=== PATIENT | female | born 1965 | race Caucasian/White ===

== ENCOUNTER 2016-09-05 12:17 | Inpatient (IN) | payer MEDICARE ==
[~2016-09-05] VITALS: Ht 167.6 cm; Wt 53.7 kg
--- NOTE | ~2016-09-05 | CON ---
PATIENT'S NAME: SHANON JOSUE [facility] AGE: 51 Y [address] ROOM: [place] [id number] LOCATION: GICU ADMIT DATE: 09/05/2016 Consultation DISCHARGE DATE: FAMILY PHYSICIAN: PHYSICIAN, UNKNOWN ATTENDING PHYSICIAN: JOSH SELLERS REFERRING PHYSICIAN: ANGELA FLORES MD This is a consult for Dr. Sellers, hospitalist. This 51-year-old lady is referred for rehab evaluation, admitted on 09/05/2016 through the emergency room with altered mental status. Was admitted, per history and physical, unresponsive and was brought in from [place] by air transport. She is now intubated and does follow on and off one-step instructions at best; otherwise, she falls back to sleep. She keeps her eyes closed. She withdraws from painful stimulation. Can move all 4. Deep tendon reflexes are present and equal throughout. Babinski is equivocal. She has an IV line and also a Winters catheter. Vitals: Blood pressure 122/90, temperature 102.8, pulse 90 to 120, and respirations 16-20. She has been started on vancomycin and parts fabricator following. She is at the present time also evaluated and investigated. Blood culture has been withdrawn and sent. Chest: Seemingly is clinically clear. Heart: Regular sinus and tachycardia. Abdomen: Soft. Bowel sounds positive. She is on the following medications: 1. NaCl 0.9%. 2. Maxipime. 3. Tylenol. 4. Dextrose 5%. 5. Precedex. 6. Versed. 7. Pepcid. 8. Lovenox. 9. Albuterol. 10. Lasix. 11. KCl. 12. Narcan. 13. Fentanyl. PATIENT'S NAME: SHANON JOSUE [facility] AGE: 51 Y [address] ROOM: [address] [address] LOCATION: GICU ADMIT DATE: 09/05/2016 Consultation DISCHARGE DATE: FAMILY PHYSICIAN: PHYSICIAN, UNKNOWN ATTENDING PHYSICIAN: JOSH SELLERS At this time, I will start her on bedside therapy, PT/OT, and Speech. Please see the orders. I will follow alongside with you, and if she is on down the line more able, I will re-evaluate for possible rehab admission. Thank you for this referral. I will follow alongside with you. MD NAKIA LEE/charlene /[id number] d: 09/06/16 1740 t: 09/07/16 0841, CONSULTATION REPORT
--- NOTE | ~2016-09-05 | HP ---
PATIENT'S NAME: SHANON JOSUE [facility] AGE: 51 Y [address] ROOM: [address] [place], [place] [address] LOCATION: CU ADMIT DATE: 09/05/2016 History & Physical DISCHARGE DATE: FAMILY PHYSICIAN: PHYSICIAN, UNKNOWN ATTENDING PHYSICIAN: JOSH SELLERS DATE OF SERVICE: CHIEF COMPLAINT: Altered mental status. HISTORY OF PRESENT ILLNESS: This is a 51-year-old female who currently is intubated, therefore I cannot obtain any information from the patient directly. I tried to call the patient's daughter; however, she did not answer. I left a voicemail for her to call back to the ICU. I already called the transferring facility who sent the patient over here in [place] and the story is that the patient daughter said that her mother has been having a few days of nausea, vomiting, diarrhea, and not feeling well, and this morning, the patient was found to be unresponsive at home, when she went over to visit her. Therefore, she called the ambulance and the patient was brought to the [place] Emergency Room for evaluation. Over there, EKG was performed, which showed sinus rhythm without any acute ischemic finding. CT of the head was also performed over there and showed no significant brain atrophy. Ventricles and subarachnoid spaces are stable. Periventricular white matter slightly decreased in density, but stable. No hemorrhage, masses, or extra-axial fluid collection. Stable without acute finding on CT scan. The patient had a urine drug screen which was positive for cannabinoid, opioid, and benzodiazepine. Her blood work was remarkable for leukocytosis of white blood cell 12.4, bicarbonate at 32, glucose 120. Urinalysis was negative for UTI. They called me for transfer, I told them to give IV Narcan 0.4 mg for possible opioid overdose and it was given, the patient responded a little bit. The patient was later transferred here for higher level of care. Upon arrival in the emergency room here, the patient was intubated after giving another 0.8 mg of IV Narcan, still minimally responsive and drowsy. Her vital sign however within normal limits. When I saw the patient. The patient was already intubated in the emergency room. Currently, she is in ICU, intubated, vital signs within normal limits. She is vented with AC mode, ETCO2 34, rate 15, respiration rate on the setting of 15, tidal volume 450, FiO2 50%, PEEP 5, saturation 100%. Blood pressure 130/92, mean arterial pressure 104, heart rate 80. No further history could be obtained from the patient given that she is intubated and I could not talk to the daughter because she did not answer the phone. REVIEW OF SYSTEMS: As mentioned in the history of present illness. All other systems reviewed and negative except those mentioned in the history of present illness. PATIENT'S NAME: SHANON JOSUE [facility] AGE: 51 Y [address] ROOM: [id number] [place] [id number] LOCATION: [facility] ADMIT DATE: 09/05/2016 History & Physical DISCHARGE DATE: FAMILY PHYSICIAN: PHYSICIAN, UNKNOWN ATTENDING PHYSICIAN: JOSH SELLERS PAST MEDICAL HISTORY: 1. Polysubstance abuse including opioid, benzodiazepine, and cannabinoid. 2. Multiple sclerosis. 3. Hypertension. 4. Chronic pain syndrome. 5. Chronic opiate dependence. 6. Depression. 7. COPD, not on home oxygen. 8. Fibromyalgia. ALLERGIES: NO KNOWN DRUG ALLERGIES. HOME MEDICATIONS: Currently, it has been reconciled. SOCIAL HISTORY: Cannot be obtained from the patient. Based on the last history and physical on [facility], she lives alone. She is disabled. She smokes about one pack per day for few years and she also uses marijuana. No alcohol use. No illegal drug use according to the medical chart. PAST SURGICAL HISTORY: Status post surgical repair of the right wrist in the past. FAMILY HISTORY: According to the medical records, her brother and her sister committed suicide. No other family history was documented in the last H and P. PHYSICAL EXAMINATION: GENERAL APPEARANCE: Sedated, intubated, sedation score 3. HEENT: Pupils are very pinpoint, 1 mm bilaterally. Non-reacted to light. Anicteric sclerae. Nasal turbinates are normal bilaterally. She is intubated. Moist oral mucosa. No oral thrush. NECK: No neck stiffness. No cervical lymphadenopathy. No carotid bruit. CARDIOVASCULAR: Regular rate and rhythm. Normal S1, S2. No murmur. No rubs, or gallops. RESPIRATORY: Clear. Chest wall, no injury on physical examination. ABDOMEN: Soft, cannot assess tenderness due to sedation, nondistended, normal bowel sounds, no hepatosplenomegaly, nondistended. No palpable mass. EXTREMITIES: No edema in upper or lower extremities. NEUROLOGIC: Sedated score 3. Intubated. SKIN: No ulcer, no rash, no cyanosis. MUSCULOSKELETAL: No joint stiffness. Muscle tone is normal. PATIENT'S NAME: SHANON JOSUE [facility] AGE: 51 Y [address] ROOM: [place] [address] LOCATION: [facility] ADMIT DATE: 09/05/2016 History & Physical DISCHARGE DATE: FAMILY PHYSICIAN: PHYSICIAN, UNKNOWN ATTENDING PHYSICIAN: JOSH SELLERS LABORATORY DATA: ABG currently pending. Lactic acid 2.1. Troponin less than 0.04. CPK 66. White blood cell 8.0, hemoglobin 12.7, hematocrit 41.4, MCV 88.1, platelets 219, glucose 61, BUN 9, creatinine 0.8. Sodium 143, potassium 4.0, chloride 106, CO2 29, calcium 9.0, total protein 7.2, albumin 3.8, AST 14, ALT 11, alkaline phosphatase 65, total bilirubin 0.2, anion gap 12, globulin 3.4, GFR more than 60. INR 1.0, PTT 26. Urinalysis from the outside facility today show positive for cannabinoid, opioid, and benzodiazepine. Procalcitonin less than 0.05. IMAGING STUDIES: Chest x-ray on admission show normal chest x-ray. Endotracheal tube in good position. CT of the head without contrast on admission here showed no significant brain atrophy. Ventricles and subarachnoid spaces stable. Periventricular white matter slightly decreased in density but stable. No hemorrhage. No masses. No extra-axial fluid collection. Stable without acute finding on CT scan. ASSESSMENT AND PLAN: 1. Altered mental status, most likely secondary to opioid overdose and possibly also benzodiazepine overdose in the setting of multiple sclerosis: From her clinical presentation and physical examination likely the patient is suffering from opioid overdose with pinpoint pupil which is very pronounced, 1 mm bilaterally. She got a total of 0.4 mg from outside facility of Narcan, here 0.8 mg Narcan in the ED, before being intubated in the ED. I will go ahead and give her another 2 mg IV Narcan right now. Guideline states that we can give up to 10 mg in a day of IV Narcan. Repeat every 3 minutes with 0.4 mg to 2 mg IV Narcan as necessary. She is already intubated and sedated. We will keep her intubated and sedated and wean off the sedation gradually to see if she will wake up and eventually be able to extubate. She had a very similar presentation here last time when she was here and MRI of the head was performed at that time, which was unremarkable. EEG was also performed at that time, which was also unremarkable. I will put a consult for Neurology tomorrow, and for now, I will not repeat MRI of the head or EEG until seen by Neurology. I have already discussed with Neurology over the phone and due to the similar presentation like last year, I do not think the MRI and EEG are necessary at the moment. I am not going to order an MRI or an EEG because I believe that she is suffering from opioid intoxication based on the pinpoint pupil. Of course, if her condition changes, MRI of the brain and also EEG will be performed. For now, she will be intubated and sedated and wean off the sedation as tolerated. ICU attending for ventilator management and critical care of this patient consult in the morning. I am not going to repeat a urine PATIENT'S NAME: SHANON JOSUE [facility] AGE: 51 Y [address] ROOM: [place] [address] LOCATION: [facility] ADMIT DATE: 09/05/2016 History & Physical DISCHARGE DATE: FAMILY PHYSICIAN: PHYSICIAN, UNKNOWN ATTENDING PHYSICIAN: JOSH SELLERS toxicology screen because she had one done from outside which is positive for opioid and benzodiazepine and also cannabinoid. Keep her IV fluid hydration at maintenance rate. For pain control, I will totally avoid opioid for now. Sedation with propofol. Further plan depends on clinical course. She will be on seizure precaution. I have already called the patient's daughter who did not answer the phone and I left a voicemail to have her call back here, so we can get more information from the daughter. 2. Deep venous thrombosis prophylaxis: She will be on Lovenox subcu and compression devices. 3. Not sure if this was a suicidal attempt or just accidental opiate overdose. I already called the patient's daughter and left a voice mail. We will see what the information she can provide us. Critical care time spent in care 80 minutes including chart review, calling the outside facility physician for history, examining the patient, addressing all the questions and concerns that the ICU nurses had, and going over the plan of care with the ICU nurses. I will place a neurologic consult in the morning. ICU attending consult in the morning. Waiting for the daughter to call us back to give us more information. MD SOURAV CRUZ/charlene /[id number] D: [id number] T: HISTORY & PHYSICAL
--- NOTE | ~2016-09-05 | CON ---
PATIENT'S NAME: LIAT SHANON F [facility] AGE: 51 Y [address] ROOM: [place] [address] LOCATION: GICU ADMIT DATE: 09/05/2016 Consultation DISCHARGE DATE: FAMILY PHYSICIAN: PHYSICIAN, UNKNOWN ATTENDING PHYSICIAN: JOSH SELLERS DATE OF CONSULTATION: 09/06/2016 REFERRING PHYSICIAN: ANGELA FLORES MD REFERRING PHYSICIAN: Hospitalist Service. REASON FOR REFERRAL: The patient is a 51-year-old woman who apparently is chronically on pain medications and anxiety medications. She presented to her local emergency room somnolent due to an apparent overdose of her prescription medications. She also had a THC in her urine. She was transferred here after intubation. She remains on mechanical ventilation. PAST MEDICAL HISTORY: Please refer to the admission history and physical exam. FAMILY HISTORY: Unobtainable due to her intubated state. SOCIAL HISTORY: Unobtainable due to her intubated state. REVIEW OF SYSTEMS: Unobtainable due to her intubated state. PHYSICAL EXAMINATION: ENT: Endotracheal tube in place. NECK: Normal. CHEST: Normal. LUNGS: Clear. HEART: Regular. ABDOMEN: Soft. EXTREMITIES: No clubbing or edema. ASSESSMENT: Respiratory failure due to narcotic and other substance overdose. PLAN: Maintain mechanical ventilation until she is awake and spontaneously breathing and then extubate. PATIENT'S NAME: SHANON JOSUE [facility] AGE: 51 Y [address] ROOM: [place] [address] LOCATION: [facility] ADMIT DATE: 09/05/2016 Consultation DISCHARGE DATE: FAMILY PHYSICIAN: PHYSICIAN, UNKNOWN ATTENDING PHYSICIAN: JOSH SELLERS MD JOSH VEGAS/modl /[id number] d: 09/06/16 1647 t: 09/21/16 1454, CONSULTATION REPORT
--- NOTE | ~2016-09-05 | DS ---
PATIENT'S NAME: SHANON JOSUE [facility] AGE: 51 Y [address] ROOM: [place] [address] LOCATION: GPCU ADMIT DATE: 09/05/2016 Discharge Summary DISCHARGE DATE: 09/08/2016 FAMILY PHYSICIAN: Physician, Unknown ATTENDING PHYSICIAN: Tong Jordan PRIMARY DIAGNOSES: 1. Acute encephalopathy. 2. Drug overdose, accidental. 3. Polysubstance abuse. 4. Acute hypoxic respiratory failure. 5. Systemic inflammatory response syndrome. 6. Multiple sclerosis. 7. Chronic pain syndrome. OPERATIONS/PROCEDURES: None. HISTORY OF PRESENTING ILLNESS AND REASON FOR ADMISSION: Please refer to the H and P dictated 09/05/2016. HOSPITAL COURSE: The patient was admitted to hospital as noted above with a presumptive diagnosis of acute encephalopathy and multiple drug overdose. The exact quantities of medications taken were unknown. She was also noted to have cannabis in her system. Although it was suggested that the incident was accidental, it was noted that the patient had at least one other similar episode in the past. On this occasion, the patient's daughter found her to be unresponsive and information regarding the suspected medication overdose were initially unknown except that medications were missing from the pill cassettes which she had been loading. Her daughter related no expressed suicidal intentions in the preceding days. The patient was placed in the intensive care unit and intubated. Her progress was relatively slow. Oxygen demand improved relatively quickly; however, the patient was persistently obtunded and difficult to arouse. On the second hospital day, she finally became more arousable and was subsequently extubated. She was hemodynamically stable over the course of her hospital stay. There was some concern for an infectious source such as a pneumonia; however, this was not evidenced radiographically. Cultures remained negative. She had been treated with some broad-spectrum antibiotics, but these were discontinued. She was subsequently transitioned to the floor. Psychiatry consultation was requested. The patient expressed that she had no suicidal intent. She recalls that she had been getting "sick" in the previous couple of days and PATIENT'S NAME: SHANON JOSUE [facility] AGE: 51 Y [address] ROOM: [place] [address] LOCATION: GPCU ADMIT DATE: 09/05/2016 Discharge Summary DISCHARGE DATE: 09/08/2016 FAMILY PHYSICIAN: Physician, Unknown ATTENDING PHYSICIAN: Tong Jordan felt somewhat disoriented. She denied that she had used any illicit drugs, although she is admitted this in the past. Per her own account, she states she was putting medications into her own as well as her daughter's pill cassettes while she was disoriented. She recalls accidentally ingesting some of the pills rather than placing them into the cassette. Subsequently, she became increasingly lethargic and obtunded. She reports that the multiple drug ingestions were accidental and not intentional and that she had no thoughts of self-harm. Psychiatry was consulted and did provide consultation. It was suggested that she follow up with her primary care provider to discuss her opiate dependence as well as recurrent overdoses and also suggested that she should schedule a followup appointment with a pain specialist for management of her chronic pain problems. She did express agreement and understanding and willing to set up an outpatient appointment. By the 4th day of her hospital stay, it was felt she would be stable enough for discharge to home on an adjusted medication regimen as well as plans for close clinical followup with primary care provider as well as outpatient followup with a pain specialty. DISCHARGE INSTRUCTIONS: DIET: Regular as tolerated. ACTIVITY: As tolerated. MEDICATIONS: 1. Amitriptyline 20 mg p.o. q.h.s. 2. Amlodipine 10 mg p.o. daily. 3. Benazepril 20 mg p.o. daily. 4. Colace 200 mg p.o. daily. 5. Cymbalta 60 mg p.o. daily. 6. Omeprazole 20 mg p.o. daily. 7. Advair Diskus 250/50 one puff p.o. b.i.d. 8. Acetaminophen 650 mg p.o. q.4 hours p.r.n. pain or fever. 9. Oxycodone ER 15 mg p.o. b.i.d. p.r.n. 10. ProAir HFA 2 puffs p.o. q.4 hours p.r.n. wheezing or dyspnea. FOLLOWUP: She will follow up with the [facility] in 3-5 days. She will schedule with the pain specialty clinic accordingly within the next 2 weeks. CONDITION ON DISCHARGE: Fair. Total time spent on discharge process, 45 minutes. PATIENT'S NAME: SHANON JOSUE [facility] AGE: 51 Y [address] ROOM: [facility] [place], [place] [address] [facility] ADMIT DATE: 09/05/2016 Discharge Summary DISCHARGE DATE: 09/08/2016 FAMILY PHYSICIAN: Adonay Crabtree ATTENDING PHYSICIAN: Tong Jordan MD DEDE PARISI/charlene /[id number] d: 09/12/16 0245 t: 09/21/16 1723, DISCHARGE SUMMARY
--- NOTE | ~2016-09-05 | CON ---
PATIENT'S NAME: SHANON JOSUE [facility] AGE: 51 Y [address] ROOM: [place] [address] LOCATION: GPCU ADMIT DATE: 09/05/2016 Consultation DISCHARGE DATE: FAMILY PHYSICIAN: PHYSICIAN, UNKNOWN ATTENDING PHYSICIAN: JOSH SELLERS DATE OF CONSULTATION: 09/08/2016 REFERRING PHYSICIAN: ANGELA FLORES MD REASON FOR CONSULT: Drug overdose. HISTORY OF PRESENT ILLNESS: The patient presents to the hospital after she overdosed on her opioid pain medications and was found unconscious by her daughter. This is her second presentation to this facility in 6 months under similar circumstances. She denies that the overdose was intentional or an attempt to kill herself. She reports that she was feeling feverish and opened her pillbox to takes some medications, and before she realized it, she was putting OxyContin pills in her mouth. She is unsure how many OxyContin pills she had taken, but says that she started feeling nauseous, went to bed, and then wakes up in the hospital. It appeared that her daughter found her unresponsive and called 911. The patient is unable to explain why she took OxyContin pills when she was feeling feverish. She denies abusing her pain medications or using more than intended or prescribed. She also reports normal mood and sleep on Cymbalta and Elavil. She complains of fatigue otherwise, denies other depressive, manic, or psychotic symptoms. She denies thoughts of self-harm or suicidal thoughts and wishes to return home to her daughter. PAST PSYCHIATRIC HISTORY: The patient has a history of recurrent major depression and states that she has been on multiple psychotropic medications over the years. She denies prior psychiatric hospitalization and denies a history of self-harm or suicide attempts. The patient states that she is currently stable on the combination of Cymbalta and amitriptyline and takes as-needed Xanax for her anxiety. She also denies misusing this medication. PAST MEDICAL HISTORY: Multiple sclerosis, hypertension, COPD, chronic pain syndrome, fibromyalgia, and chronic opioid medication use. MEDICATIONS: See medication list. ALLERGIES: PATIENT'S NAME: SHANON JOSUE [facility] AGE: 51 Y [address] ROOM: [place] [address] LOCATION: GPCU ADMIT DATE: 09/05/2016 Consultation DISCHARGE DATE: FAMILY PHYSICIAN: PHYSICIAN, UNKNOWN ATTENDING PHYSICIAN: JOSH SELLERS NO KNOWN DRUG ALLERGIES. PAST FAMILY AND SOCIAL HISTORY: The patient reports that she was born and raised in [place] and moved to [place], [place], several years ago where she lives with her daughter. She is and currently unemployed and on disability. She denies a history of childhood abuse or trauma. The patient denies legal problems and denies alcohol and cannabis use despite a urine drug screen positive for cannabis. She smokes about half a pack of cigarettes daily. Her family history is significant for depression and suicide. REVIEW OF SYSTEMS: Ten systems reviewed and all others negative except as noted in the History. MENTAL STATUS EXAMINATION: The patient is in bed. She is pleasant and cooperative with the interview. She makes good eye contact. She has a normal psychomotor activity. Her speech is normal in rate and volume. She describes her mood as euthymic. Her affect is reactive and spontaneous. Her thoughts are logical and goal directed. She denies suicidal, homicidal, or violent ideations. She denies hallucinations and has no delusions. She is alert and oriented to time, person, and place. Her concentration and memory are normal. Her language is intact. Her intelligence appears average. Her insight and judgment are fair. DIAGNOSES: 1. Major depressive disorder, recurrent, in remission. 2. Rule out opioid use disorder. PLAN: The patient denies problematic opioid use despite the overdoses. Refer the patient to Pain Management to evaluate chronic pain and consider non-opioid alternatives and possibly wean the patient off her opioid pain medications. Consider referral to outpatient chemical dependency evaluation and psychiatric followup. Thank you for your consult. MD CONSTANTINO JUARES/charlene PATIENT'S NAME: SHANON JOSUE [facility] AGE: 51 Y [address] ROOM: [place] [address] LOCATION: GPCU ADMIT DATE: 09/05/2016 Consultation DISCHARGE DATE: FAMILY PHYSICIAN: PHYSICIAN, UNKNOWN ATTENDING PHYSICIAN: JOSH SELLERS /[id number] d: 09/08/16 1012 t: 09/08/16 1054, CONSULTATION REPORT
--- NOTE | ~2016-09-05 | ER ---
PATIENT'S NAME: SHANON JOSUE [facility] AGE: 51 Y [address] ROOM: [place] [address] LOCATION: [facility] ADMIT DATE: 09/05/2016 ER/Outpatient Report DISCHARGE DATE: FAMILY PHYSICIAN: PHYSICIAN, UNKNOWN ATTENDING PHYSICIAN: JOSH SELLERS Time of Arrival: 1215 hours. Time of Evaluation: 1215 hours. CHIEF COMPLAINT: Altered mental status. HISTORY OF PRESENT ILLNESS: The patient is a 51-year-old female who presents to Emergency Department today with a chief complaint of altered mental status. She was life flighted in from [place]. Was accepted by Dr. Sellers, however, there was a concern that she may need intubation, so she presented here to the emergency department. She was seen and evaluated immediately upon arrival by myself. The patient was found to be unresponsive. Per report from the Life Flight, the patient was given 0.4 mg of Narcan without any improvement. There is a suspected overdose. The patient does live at home. Has a history of anxiety, depression, some chronic pain as well as fibromyalgia, MS, and anemia. Per report, the patient was positive for drug screen for benzos, marijuana, opiates, and oxycodone. The patient is unresponsive and is not answering questions at the time of my evaluation. All other information is received from outlying facility, and labs and old records here in our system. PAST MEDICAL HISTORY: Hypertension, multiple sclerosis, chronic pain syndrome, depression, COPD, UTI, and fibromyalgia. PAST SURGICAL HISTORY: Right wrist. SOCIAL HISTORY: The patient lives alone. Disabled. Smokes approximately 1 pack per day. Uses marijuana. Denies any alcohol. FAMILY HISTORY: Brother and sister committed suicide. ALLERGIES: NO KNOWN DRUG ALLERGIES. MEDICATIONS: Reported at this time were, 1. Albuterol. PATIENT'S NAME: SHANON JOSUE [facility] AGE: 51 Y [address] ROOM: [place] [address] LOCATION: [facility] ADMIT DATE: 09/05/2016 ER/Outpatient Report DISCHARGE DATE: FAMILY PHYSICIAN: PHYSICIAN, UNKNOWN ATTENDING PHYSICIAN: JOSH SELLERS 2. ProAir. 3. Alprazolam. 4. Amlodipine. 5. Baclofen. 6. Benazepril. 7. Advair. 8. Dilaudid. 9. Prilosec. 10. Oxycodone. PRIMARY CARE DOCTOR: None reported. REVIEW OF SYSTEMS: Unable to be obtained due to the patient's unresponsive condition. PHYSICAL EXAMINATION: VITAL SIGNS: Weight 54.5 kg, blood pressure 114/89, pulse 103, respiratory rate 12, temperature 94.6, and oxygen saturation 100% with being bagged. HEENT: Head: Normocephalic, atraumatic. Pupils are pinpoint and reactive. Nares are patent bilaterally. Oropharynx with vomitus noted. TMs are clear. NECK: Supple. There is no evidence of trauma. CARDIOVASCULAR: Tachycardic. No murmurs, rubs, or gallops. LUNGS: Clear to auscultation bilaterally. No wheezes, rales, or rhonchi. ABDOMEN: Soft, nontender, and nondistended. No rebound, rigidity, or guarding. MUSCULOSKELETAL: The patient is not moving any of her extremities. GCS of E 2, speech 1, motor 3, total of 6. SKIN: Warm and dry. LABS AND X-RAYS: Outside labs are evaluated. CBC: White blood cell count 12.4, hemoglobin 12.1, hematocrit 36.9, otherwise unremarkable. CMP normal except for CO2 of 32. AST is normal. ALT was normal. Magnesium is normal. UDS is positive for benzodiazepine, positive for THC, positive for opiates, positive for oxycodone. Urinalysis shows trace protein, many bacteria. EKG shows sinus rhythm with a rate of 80 beats per minute, normal axis, normal interval. No ST elevation, ST depression, or T-wave inversions. A CT scan of the brain is pending as well as further laboratory analysis, which will be reviewed by Dr. Sellers. IMPRESSION: 1. Acute respiratory failure, requiring intubation. 2. Suspected overdose. 3. Altered mental status secondary to suspected overdose. PATIENT'S NAME: SHANON JOSUE [facility] AGE: 51 Y [address] ROOM: [id number] [place], [place] [address] LOCATION: [facility] ADMIT DATE: 09/05/2016 ER/Outpatient Report DISCHARGE DATE: FAMILY PHYSICIAN: PHYSICIAN, UNKNOWN ATTENDING PHYSICIAN: JOSH SELLERS 4. Polysubstance abuse. 5. Initial visit. EMERGENCY DEPARTMENT COURSE: The patient brought back to the examination room, seen and evaluated immediately upon arrival by myself. The patient has sonorous respirations, has evidence of only GCS of 6 at this time. Thus, I do feel she will require intubation. The patient was given 10 mg of etomidate as well as 6 mg of vecuronium. The patient is intubated by Jose, one of our flight nurses, under my direct supervision. A GlideScope is utilized for visualization of the cords, 7.5 ET tube is placed, visualized through the cords. Her end-tidal CO2 was positive Colormetric. She also has positive quantitative end-tidal CO2. The patient has bilateral breath sounds, no epigastric sounds. The patient does have postprocedure ET tube evaluation with good, adequate placement of the endotracheal tube. There is no evidence of pneumothorax or pneumonia. I have discussed the case with Dr. Sellers, he does agree to accept the patient for further evaluation in the ICU. Dr. Sellers has seen and evaluated the patient down here in the emergency department, please see his dictation. DISPOSITION: The patient is admitted under the care of Dr. eSllers, Hospitalist Service in a guarded condition. DO BRONWYN BONNER/charlene /[id number] d: 09/05/160 t: 09/07/16 1644, OUTPATIENT REPORT
[~2016-09-05 12:17] MED LIST: ADVAIR 250-501 EACH INH; COLACE100 MG PO; CYMBALTA60 MG PO; DILAUDID 4MG4 MG PO; LIORESAL10 MG PO; LOTENSIN20 MG PO; NORVASC10 MG PO; OXYCONTIN30 MG PO; PRILOSEC20 MG PO; XANAX1 MG PO; ZOVIRAX800 MG PO
[2016-09-05 13:10] LABS: BASOPHIL % 0.3 %; EOSINOPHIL % 0.1 %; HEMATOCRIT 41.4 % (33.0-46.0); HEMOGLOBIN 12.7 g/dL (10.0-15.0); IMMATURE GRANULOCYTE % 0.3 %; LYMPHOCYTE % 12.4 %; MCHC 30.7 gm/dL (32.0-36.5); MCV 88.1 fl (83.0-98.0); MONOCYTE # 0.5 K/uL (0.0-1.0); MONOCYTE % 6.6 %; MPV 10.7 fl (9.4-12.4); NEUTROPHIL # (ANC) 6.4 K/uL (1.8-7.8); NEUTROPHIL % 80.3 %; NRBC % 0 /100WBC (0-0.00); PLATELET COUNT 319 K/uL (150-450); RDW-CV 20.1 % (11.9-14.6)
[2016-09-05 13:18] LABS: PTT 26 SECONDS (25-32)
[2016-09-05 13:32] LABS: ALBUMIN 3.8 gm/dL (3.5-5.0); ALK PHOS 65 IU/L (33-138); ALT 11 IU/L (12-78); AST 14 IU/L (10-40); BLOOD UREA NITROGEN 9 mg/dL (6-24); CHLORIDE 106 mMol/L (96-110); CO2 29 mMol/L (22-32); CPK 66 IU/L (21-215); CREATININE 0.8 mg/dL (0.5-1.1); ESTIMATED GFR (MDRD EQUATION) > 60; SODIUM 143 mMol/L (135-145); TOTAL BILIRUBIN 0.2 mg/dL (0.0-1.5); TOTAL PROTEIN 7.2 g/dL (6.0-8.4)
[2016-09-05 15:06] LABS: BICARBONATE 30.4 mmol/L (18.0-23.0); PCO2 48 mmHg (35-45); PO2 67 mmHg (80-90)
[2016-09-06 05:33] LABS: ANION GAP 11.4 (10.0-19.0); BLOOD UREA NITROGEN 7 mg/dL (6-24); CALCIUM 8.1 mg/dL (8.5-10.5); CHLORIDE 110 mMol/L (96-110); CO2 25 mMol/L (22-32); CREATININE 0.6 mg/dL (0.5-1.1); ESTIMATED GFR (MDRD EQUATION) > 60; POTASSIUM 3.4 mMol/L (3.7-5.1); SODIUM 143 mMol/L (135-145)
[2016-09-06] MEDS ORDERED: ELAVIL10 MG PO (10:17)
[2016-09-06 14:13] LABS: ALBUMIN 2.9 gm/dL (3.5-5.0); ALK PHOS 56 IU/L (33-138); ANION GAP 11.3 (10.0-19.0); AST 10 IU/L (10-40); BLOOD UREA NITROGEN 7 mg/dL (6-24); CALCIUM 7.7 mg/dL (8.5-10.5); CHLORIDE 111 mMol/L (96-110); CO2 25 mMol/L (22-32); CREATININE 0.6 mg/dL (0.5-1.1); ESTIMATED GFR (MDRD EQUATION) > 60; POTASSIUM 3.3 mMol/L (3.7-5.1); SODIUM 144 mMol/L (135-145); TOTAL BILIRUBIN 0.2 mg/dL (0.0-1.5); TOTAL PROTEIN 5.7 g/dL (6.0-8.4)
[2016-09-06 14:14] LABS: ALT < 10 IU/L (12-78)
[2016-09-07 05:16] LABS: BASOPHIL % 0.3 %; EOSINOPHIL # 0.1 K/uL (0.0-0.5); EOSINOPHIL % 1.4 %; HEMOGLOBIN 10.4 g/dL (10.0-15.0); IMMATURE GRANULOCYTE % 0.1 %; LYMPHOCYTE # 0.7 K/uL (0.8-4.0); LYMPHOCYTE % 9.4 %; MCV 84.2 fl (83.0-98.0); MONOCYTE # 0.7 K/uL (0.0-1.0); MONOCYTE % 8.4 %; MPV 10.9 fl (9.4-12.4); NEUTROPHIL # (ANC) 6.3 K/uL (1.8-7.8); NEUTROPHIL % 80.4 %; NRBC % 0 /100WBC (0-0.00); RBC 3.85 M/uL (3.50-5.50); RDW-CV 19.9 % (11.9-14.6); WBC 7.9 K/uL (4.0-11.0)
[2016-09-07 05:17] LABS: HEMATOCRIT 32.4 % (33.0-46.0); MCHC 32.1 gm/dL (32.0-36.5); PLATELET COUNT 239 K/uL (150-450)
[2016-09-07 05:32] LABS: ALBUMIN 2.7 gm/dL (3.5-5.0); ANION GAP 12.4 (10.0-19.0); BLOOD UREA NITROGEN 5 mg/dL (6-24); CALCIUM 8.1 mg/dL (8.5-10.5); CHLORIDE 108 mMol/L (96-110); CO2 24 mMol/L (22-32); CREATININE 0.4 mg/dL (0.5-1.1); ESTIMATED GFR (MDRD EQUATION) > 60; PHOSPHORUS 2.4 mg/dL (2.5-4.9); POTASSIUM 3.4 mMol/L (3.7-5.1); SODIUM 141 mMol/L (135-145)
[2016-09-08] MEDS ORDERED: TYLENOL325 MG PO (15:01)
[2016-09-08] MEDS ORDERED: OXYCODONE HCL15 MG PO (15:02)
[2016-10-11] MEDS ORDERED: NEURONTIN100 MG PO (10:53)
[2016-10-11] MEDS ORDERED: DULERA 200 MCG/51 EA INH (10:54)
[2016-10-11] MEDS ORDERED: NICODERM / HABIT7 MG TRANS (10:59)
[2016-10-11] MEDS ORDERED: ROXICODONE 5MG (5 MG PO ×2 (11:02→11:03)
[2016-10-11] MEDS ORDERED: DESYREL50 MG PO (11:05)
[2016-10-11] MEDS ORDERED: EFFEXOR XR75 MG PO (11:07)
[2016-10-11] MEDS ORDERED: VISTARIL25 M1 PO (11:08)
[2016-10-11] MEDS ORDERED: MOTRIN600 MG PO (11:09)
== END 2016-09-08 16:05 | disposition disaster alternative care site (69) | DRG 917 ==
LOC: GPCU 12:17 → GMED 12:17 → EDSTATUS 12:24 → GICU 12:47 → GPCU 12:47 → GICU 09-06 11:05 → GPCU 09-07 17:24
PROVIDERS: Emergency Medicine; Family Medicine; ADMIT Internal Medicine
PROC: 0BH17EZ Insertion of Endotracheal Airway into Trachea, Via Natural or Artificial Opening (ICD-10-PCS; principal; 2016-09-05)
PROC: 5A1945Z Respiratory Ventilation, 24-96 Consecutive Hours (ICD-10-PCS; principal; 2016-09-05)
DX: T50.901A Poisoning by unspecified drugs, medicaments and biological substances, accidental (unintentional), initial encounter (principal); J96.01 Acute respiratory failure with hypoxia; R65.11 Systemic inflammatory response syndrome (SIRS) of non-infectious origin with acute organ dysfunction; G92 Toxic encephalopathy; F11.20 Opioid dependence, uncomplicated; F33.40 Major depressive disorder, recurrent, in remission, unspecified; F17.210 Nicotine dependence, cigarettes, uncomplicated; G35 Multiple sclerosis; I10 Essential (primary) hypertension; J44.9 Chronic obstructive pulmonary disease, unspecified; G89.4 Chronic pain syndrome
CPT/HCPCS: J0692; J1650; J1940; J2310; J3370; J7030; J7040; J7050

== ENCOUNTER 2016-10-04 13:30 | Inpatient (IN) | payer MEDICARE ==
[~2016-10-04] VITALS: Ht 165.1 cm; Wt 55.9 kg
--- NOTE | ~2016-10-04 | DS ---
PATIENT'S NAME: SHANON JOSUE [facility] AGE: 51 Y [address] ROOM: [address] [address] LOCATION: [facility] ADMIT DATE: 10/04/2016 Discharge Summary DISCHARGE DATE: 10/05/2016 FAMILY PHYSICIAN: Physician, Unknown ATTENDING PHYSICIAN: Rafael Chowdary V FINAL DIAGNOSES: 1. Suicide attempt. 2. Severe depression. 3. Chronic pain syndrome. 4. Multiple sclerosis. 5. Chronic obstructive pulmonary disease. 6. Essential hypertension. REASONS FOR HOSPITALIZATION: Suicide attempt. LABORATORY DATA: On arrival, sodium 145, potassium 4.2, chloride 112, CO2 25, BUN 7, creatinine 0.8, alkaline phosphatase 64, AST 32, ALT 14, and GFR greater than 60. White blood cell count 8.7, hemoglobin 12.1, hematocrit 39.9, and platelet count 329. Urinalysis: 5-10 whites and rare reds. ABGs on admission; pH 7.49, pCO2 35, PO2 107 and that was on 3 L. Carboxyhemoglobin was 1.9. HOSPITAL COURSE: The patient was accepted in transfer from [place] after she was admitted there with a suicide attempt with carbon monoxide poisoning. It is felt that she needed to be transferred to higher level care and was brought to the hospital at [facility]. On arrival, her oxygenation was adequate as ABGs were drawn. She was placed on oxygen and weaned as necessary. She was given aggressive IV hydration. The patient was placed on an EPC from the transferring facility. Psych was consulted and felt that she was a candidate for direct admission. She did complain about significant pain and had been on MS Contin at home, this was restarted, and she was also restarted on her Cymbalta. It was felt that she was best cared for by transferring to [facility] and this did happen on the . DISCHARGE INSTRUCTIONS: She would to have a regular diet. MEDICATIONS: 1. Amitriptyline 10 mg at bedtime. 2. Cymbalta 60 mg daily. 3. Lotensin 20 mg daily, hold it for systolic blood pressures less than 120. 4. Norvasc 10 mg daily, hold it for systolic blood pressures less than 120. 5. MS Contin 15 mg twice daily. 6. Nicotine patch 14 mg on in the morning and off at night. 7. Tylenol 650 mg every 6 hours as needed. PATIENT'S NAME: SHANON JOSUE [facility] AGE: 51 Y [address] ROOM: [place] [address] LOC[facility] ADMIT DATE: 10/04/2016 Discharge Summary DISCHARGE DATE: 10/05/2016 FAMILY PHYSICIAN: Physician, Unknown ATTENDING PHYSICIAN: Rafael Chowdary V 8. Prilosec 20 mg daily. 9. ProAir HFA 2 puffs every 4 hours as needed for shortness of breath. 10. Advair 250/50 one puff every 12 hours. 11. Colace 200 mg daily. OVERALL PROGNOSIS: At discharge was guarded. BETINA KIM MD LAW/modl /[id number] d: 10/06/162 t: 10/06/16 1643, DISCHARGE SUMMARY
--- NOTE | ~2016-10-04 | HP ---
PATIENT'S NAME: SHANON JOSUE [facility] AGE: 51 Y [address] ROOM: [place] [address] LOCATION: [facility] ADMIT DATE: 10/04/2016 History & Physical DISCHARGE DATE: FAMILY PHYSICIAN: PHYSICIAN, UNKNOWN ATTENDING PHYSICIAN: OMARI HUNT V DATE OF SERVICE: CHIEF COMPLAINT: Attempted suicide. HISTORY OF PRESENT ILLNESS: This is obtained from transferring physician as well as the accompanying medical records. The patient is a 51-year-old female with past medical history significant for polysubstance abuse, prior suicide attempts, multiple sclerosis as well as COPD. Today, she attempted to commit a suicide along with her daughter. The patient and her daughter brought a charcoal powered grill inside the house as well as tents. Apparently, the grill was turned on and they were planning to commit suicide by carbon monoxide poisoning. This is supported by multiple suicide notes accompanying the patient from the outside facility. The suicide notes mentioned depression, poverty, and inability to deal with the present stressors. It was conveyed to me that the daughter eventually called the police and when they came to the house, the carbon monoxide detector went off. They found that the daughter awake and communicative, but the mother who is the actual patient was in attempt withholding a dog. Both the daughter (who was transferred to separate facility) and the mother were taken out of the house and transferred to the hospital. Initially, the patient was obtunded, but subsequently woke up and was saturating 100% on 6 L nasal cannula. At this point, she is quite obtunded, but arousable and follows commands. Of note, the patient and her daughter also took some benzos and she did receive Romazicon at outside facility. At this point, the patient has been EPC'd and is in one-to-one and does not verbalize any specific complaints. PAST MEDICAL HISTORY: Significant for prior suicide attempts, multiple sclerosis, COPD, polysubstance abuse, and psychiatric disorder. CURRENT MEDICATIONS: 1. Albuterol. PATIENT'S NAME: SHANON JOSUE [facility] AGE: 51 Y [address] ROOM: [place] [address] LOCATION: [facility] ADMIT DATE: 10/04/2016 History & Physical DISCHARGE DATE: FAMILY PHYSICIAN: PHYSICIAN, UNKNOWN ATTENDING PHYSICIAN: OMARI HUNT V 2. Amitriptyline. 3. Amlodipine. 4. Benazepril. 5. Colace. 6. Cymbalta. 7. Advair. 8. Omeprazole. 9. Oxycodone. Though it is my understanding that the patient cannot afford any of these medications, we have to assume she has not taken them. SOCIAL HISTORY: Significant for polysubstance abuse, most specifically benzodiazepine dependence. FAMILY HISTORY: Cannot be obtained due to encephalopathy. PHYSICAL EXAMINATION: VITAL SIGNS: At this point; blood pressure 142/100, heart rate is 86, afebrile, saturating 100% on 4 L nasal cannula, and respirations are 12. GENERAL APPEARANCE: Malnourished, chronically ill, middle-aged female, in no acute distress, but quite obtunded and responding to some painful stimuli and some commands. HEENT: Eye exam shows pupils are pinpoint and sluggishly responsive. LYMPHATIC: Shows no cervical lymphadenopathy. ENDOCRINE: Shows no thyromegaly. LUNGS: Clear to auscultation. HEART: Heart rate is regular. No appreciable murmurs, gallops, or rubs. ABDOMEN: Soft, nontender, and nondistended. : Reveals no costovertebral angle tenderness. VASCULAR: Reveals 2+ pedal pulses. MUSCULOSKELETAL: Shows no muscle or joint abnormalities. SKIN: Does reveal what appears to be some burn turner over her left knee. PSYCHIATRIC: Cannot be performed due to altered mental status. LABORATORY DATA: Review of labs from the outside facility is significant for an elevated phosphorus, but I do not have the remainder of her labs. ASSESSMENT AND PLAN: This is a 51-year-old female, who will be admitted with one suicide attempt. The patient has been EPC'd and placed on one-to-one. Once the acute medical illness is resolved, we will get her evaluated by Psychiatry. PATIENT'S NAME: SHANON JOSUE [facility] AGE: 51 Y [address] ROOM: [id number] [place], [place] [address] [facility] ADMIT DATE: 10/04/2016 History & Physical DISCHARGE DATE: FAMILY PHYSICIAN: PHYSICIAN, UNKNOWN ATTENDING PHYSICIAN: OMARI HUNT V 1. Carbon monoxide poisoning. At this point, she appears to be oxygenating well, but we need to check her carboxyhemoglobin levels. 2. Polysubstance ingestion. She was positive for opioids, benzos, and THC at the outside facility. She did receive Romazicon (flumazenil), but at this point it is quite obtunded and I will treat her with Narcan. We will also get an ABG and get electrolytes as well as acetaminophen and salicylate levels. We will monitor her closely on telemetry. We will support her oxygenation and respiration as needed. 3. Chronic obstructive pulmonary disease. At this point, the patient has good bilateral air entry, but we will make sure that she is not over retaining CO2 by checking ABG. 4. Deep venous thrombosis prophylaxis will be pharmacologic. 5. Additional management depend on clinical course. Time dedicated to this patient's encounter is 35 minutes. MD ANGELA LATHAM/charlene /[id number] D: [id number] T: [id number] HISTORY & PHYSICAL
[~2016-10-04 13:30] MED LIST changes: -DESYREL50 MG PO; -DULERA 200 MCG/51 EA INH; -EFFEXOR XR75 MG PO; -MOTRIN600 MG PO; -NEURONTIN100 MG PO; -NICODERM / HABIT7 MG TRANS; -ROXICODONE 5MG (5 MG PO; -VISTARIL25 M1 PO
[2016-10-04 19:10] LABS: ALBUMIN 3.5 gm/dL (3.5-5.0); ALK PHOS 64 IU/L (33-138); ALT 14 IU/L (12-78); ANION GAP 12.2 (10.0-19.0); AST 32 IU/L (10-40); BLOOD UREA NITROGEN 7 mg/dL (6-24); CALCIUM 8.5 mg/dL (8.5-10.5); CHLORIDE 112 mMol/L (96-110); CO2 25 mMol/L (22-32); CREATININE 0.8 mg/dL (0.5-1.1); ESTIMATED GFR (MDRD EQUATION) > 60; MAGNESIUM 1.8 mg/dL (1.3-2.6); PHOSPHORUS 3.7 mg/dL (2.5-4.9); POTASSIUM 4.2 mMol/L (3.7-5.1); SODIUM 145 mMol/L (135-145); TOTAL BILIRUBIN 0.2 mg/dL (0.0-1.5); TOTAL PROTEIN 6.7 g/dL (6.0-8.4)
[2016-10-04 20:22] LABS: BILIRUBIN URINE NEGATIVE (NEGATIVE); BLOOD URINE 25 /UL (NEGATIVE); COLOR URINE YELLOW (YELLOW); GLUCOSE URINE NEGATIVE (NEGATIVE); KETONE URINE 15 mg/dL (NEGATIVE); LEUKOCYTES URINE 25 /UL (NEGATIVE); NITRITE URINE NEGATIVE (NEGATIVE); PROTEIN URINE NEGATIVE (NEGATIVE); SPEC GRAVITY URINE 1.025 (1.003-1.035); TURBIDITY URINE CLEAR (CLEAR); UROBILINOGEN URINE NORMAL (NORMAL)
[2016-10-04 20:25] LABS: BASOPHIL % 0.3 %; EOSINOPHIL # 0.1 K/uL (0.0-0.5); EOSINOPHIL % 0.9 %; HEMOGLOBIN 12.1 g/dL (10.0-15.0); IMMATURE GRANULOCYTE % 0.2 %; LYMPHOCYTE # 1.6 K/uL (0.8-4.0); LYMPHOCYTE % 18.2 %; MCH 26.8 pg (27.0-34.0); MONOCYTE # 0.5 K/uL (0.0-1.0); MONOCYTE % 6.2 %; MPV 12.2 fl (9.4-12.4); NEUTROPHIL # (ANC) 6.4 K/uL (1.8-7.8); NEUTROPHIL % 74.2 %; NRBC % 0 /100WBC (0-0.00); RBC 4.51 M/uL (3.50-5.50); RDW-CV 19.9 % (11.9-14.6); WBC 8.7 K/uL (4.0-11.0)
[2016-10-04 20:26] LABS: HEMATOCRIT 39.9 % (33.0-46.0); MCHC 30.3 gm/dL (32.0-36.5); MCV 88.5 fl (83.0-98.0); PLATELET COUNT 329 K/uL (150-450)
[2016-10-04 20:29] LABS: BACTERIA URINE NEGATIVE (NEGATIVE); EPITHELIAL URINE RARE #/HPF (NEGATIVE); MUCUS URINE 1+ (NEGATIVE); RBC URINE RARE #/HPF (NEGATIVE)
[2016-10-04 20:44] LABS: BICARBONATE 22.7 mmol/L (18.0-23.0); PCO2 35 mmHg (35-45); PO2 107 mmHg (80-90)
--- NOTE | 2016-10-05 05:05 | NUR ---
Significant Event:Patient 1:1 for suicide attempt. Very drowsy but A/Ox3. Follows commands, moves all extremities. HR 80-90 SR. O2 weaned to RA. L)knee has questionable bites of some sort. Patient stated that it use to itch but no c/o of the tonight. C/O pain all over discussed patient history with and want of pain medication did receive a 1 time dose of motrin. Patient rested most of the night. Tearful at times, would like to know how her daughter is doing. Follow up:[facility] consult with possible transfer. Patient is an EPC.
--- NOTE | 2016-10-05 08:27 | NUR ---
PT SCREENED D/T (+) MST. WT ACTUALLY UP 4 KG FROM ADMISSION ONE MONTH AGO. BMI WNL. BASED ON CURRENT DATA, NO NUTRITION-RELATED DIAGNOSIS IDENTIFIED.
--- NOTE | 2016-10-05 13:27 | NUR ---
Reviewed Mai's chart and talked with FAY Kaur. In looking at Mai's chart, it does appear that she is EPC'd with [facility]. I did attempt to call and talk with the officer that had signed her EPC paperwork, Officer Naseem Colvin, but he was off duty today. Dispatch at [facility]'s Dept. did connect me with an office [place], who took my name and my phone number down so he could have Ed call me back so we could talk about the EPC they had on Mai and also address any discharge questions that I had. In talking with FAY Kaur, she states that pt is currently on a 1:[address] Clarke has not rounded yet today to determine if Mai would be cleared for discharge today or not. I went ahead and placed dismissal paperwork on the chart for Dr. Clarke to fill out if she felt as if Mai was ready to leave today. I have tried calling over to [facility] x2 to talk with Carmel or Heather to see if they have any female beds open on the adult unit, but have been unable to reach them as they have "been on the phone" when I have called. Will wait to hear back from Office Ed and then proceed with trying to talk with Mai and also securing placement for her for her psych needs. CM to continue to follow and assist.
--- NOTE | 2016-10-05 17:07 | NUR ---
Significant Event: A/O X 3. UP TO BATHROOM AND SHOWERED TODAY. 1:1 STATUS. AFEBILE. HR SR 90-100'S. SBP 113-122. SATS 99% ON ROOM AIR. HAS BEEN COOPERATIVE, BUT CAN BE VERY MANIPULATIVE. NICOTINE PATCH PLACE LT. UPPER. ARM. Follow up: [facility]. TO BE EPC FROM [facility]. CM WORKING ON GETTING PATIENT TO [facility].
--- NOTE | 2016-10-05 17:54 | NUR ---
Significant Event: TRANSFER NOTE: PATIENT A/O X 3. RESTARTED ON MS CONTIN AND CYMBALTA FOR CHRONIC PAIN. AFEBRILE. VITAL SIGNS WNL. MEYER CATH DC'D. AT 1750. Follow up: CONT. TO [facility].
[2016-10-11] MEDS ORDERED: NEURONTIN100 MG PO (10:53)
[2016-10-11] MEDS ORDERED: DULERA 200 MCG/51 EA INH (10:54)
[2016-10-11] MEDS ORDERED: NICODERM / HABIT7 MG TRANS (10:59)
[2016-10-11] MEDS ORDERED: ROXICODONE 5MG (5 MG PO ×2 (11:02→11:03)
[2016-10-11] MEDS ORDERED: DESYREL50 MG PO (11:05)
[2016-10-11] MEDS ORDERED: EFFEXOR XR75 MG PO (11:07)
[2016-10-11] MEDS ORDERED: VISTARIL25 M1 PO (11:08)
[2016-10-11] MEDS ORDERED: MOTRIN600 MG PO (11:09)
== END 2016-10-05 19:35 | DRG 918 ==
LOC: GPCU 16:16
PROVIDERS: ADMIT Internal Medicine
DX: T58.2X2A Toxic effect of carbon monoxide from incomplete combustion of other domestic fuels, intentional self-harm, initial encounter (principal); G35 Multiple sclerosis; I10 Essential (primary) hypertension; F32.9 Major depressive disorder, single episode, unspecified; Y92.019 Unspecified place in single-family (private) house as the place of occurrence of the external cause; J44.9 Chronic obstructive pulmonary disease, unspecified; T40.2X2A Poisoning by other opioids, intentional self-harm, initial encounter; T42.4X2A Poisoning by benzodiazepines, intentional self-harm, initial encounter; T40.7X2A Poisoning by cannabis (derivatives), intentional self-harm, initial encounter; G89.4 Chronic pain syndrome
CPT/HCPCS: G0480; J1650; J2310; J2405; J7030

== ENCOUNTER → 2016-10-04 | Outpatient (CLI) | payer MEDICARE ==
[~2016-10-04] MED LIST changes: +DESYREL50 MG PO; +DULERA 200 MCG/51 EA INH; +EFFEXOR XR75 MG PO; +ELAVIL10 MG PO; +MOTRIN600 MG PO; +NEURONTIN100 MG PO; +NICODERM / HABIT7 MG TRANS; +OXYCODONE HCL15 MG PO; +ROXICODONE 5MG (5 MG PO; +TYLENOL325 MG PO; +VISTARIL25 M1 PO
== END | disposition disaster alternative care site (69) ==
LOC: GAMB 14:42
DX: R41.82 Altered mental status, unspecified (principal); T65.91XA Toxic effect of unspecified substance, accidental (unintentional), initial encounter; F32.9 Major depressive disorder, single episode, unspecified; F10.20 Alcohol dependence, uncomplicated; I10 Essential (primary) hypertension; J44.9 Chronic obstructive pulmonary disease, unspecified; G89.29 Other chronic pain; Z79.891 Long term (current) use of opiate analgesic; Z79.899 Other long term (current) drug therapy
CPT/HCPCS: A0422; A0425; A0426